=== PATIENT | male | born 1965 | race Two or more races ===

== ENCOUNTER 2017-11-23 19:01 | Inpatient (IN) | payer SELFPAY ==
[~2017-11-23] VITALS: Ht 177.8 cm; Wt 101.6 kg
--- NOTE | 2017-11-23 19:16 | NUR ---
BB FAMILY C/O "CHEST PAIN 07/02. I HAVE CHF. DONT FUCKING TOUCH ME". PT DESCRIBES PAIN SHARP PAIN THAT IS NON-RADIATING AND CONSTANT AT THIS TIME. PT IS NOTED TO BE RESTLESS AND ANGRY WITH STAFF. PT AMBULATED TO ER BED 7 WITH STEADY GAIT NOTED. NO S/S OF ACUTE DISTRESS NOTED. PT RESP EVEN AND UNLABORED. SKIN IS DRY AND WARM TO TOUCH. 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 AWAITING MD COLLINS.
--- NOTE | 2017-11-23 19:37 | NUR ---
RADIOLOGY BEDSIDE FOR CHEST X-RAY
[2017-11-23] MEDS ORDERED: ONDANSETRON HCL/PF 4 MG/2 ML VIAL ONE (19:42)
[2017-11-23] MEDS ORDERED: MORPHINE SULFATE INJ 4 MG/ML DISP.SYRIN ONE (19:42)
[2017-11-23] MEDS ORDERED: NITROGLYCERIN PACKET 1 GM PACKET ONE (19:43)
[2017-11-23 19:49] LABS: BASOPHILS # (AUTO) 0.1 /CMM (0.0-0.2); BASOPHILS % (AUTO) 1.4 % (0.0-2.0); EOSINOPHILS # (AUTO) 0.1 /CMM (0.0-0.7); EOSINOPHILS % (AUTO) 1.1 % (0.0-6.0); HEMATOCRIT 44 % (39-51); HEMOGLOBIN 14.9 g/dL (13.5-17.5); LYMPHOCYTES # (AUTO) 3.3 /CMM (0.8-4.8); LYMPHOCYTES % (AUTO) 31.3 % (20.0-44.0); MEAN CORPUSCULAR HEMOGLOBIN 26 PG (26.0-33.0); MEAN CORPUSCULAR HGB CONC 34 g/dl (31.0-36.0); MEAN CORPUSCULAR VOLUME 79 fL (80-96); MONOCYTES # (AUTO) 0.6 /CMM (0.1-1.30); MONOCYTES % (AUTO) 5.6 % (2.0-12.0); NEUTROPHILS # (AUTO) 6.3 /CMM (1.8-8.9); NEUTROPHILS % (AUTO) 60.6 % (43.0-81.0); PLATELET COUNT (AUTO) 251 /CMM (150-450); RDW COEFFICIENT OF VARIATION 16.8 (11.5-15.0); RED BLOOD CELL COUNT(AUTO) 5.63 MIL/uL (4.5-6.0); WHITE BLOOD COUNT (AUTO) 10.4 K/uL (4.3-11.0)
[2017-11-23 20:00] LABS: CREATININE 1.2 mg/dL (0.6-1.3); POTASSIUM 3.9 mmol/L (3.5-5.1)
[2017-11-23] MEDS ORDERED: NITROGLYCERIN PACKET 1 GM PACKET TD ONE (20:00)
[2017-11-23] MEDS ORDERED: ONDANSETRON HCL/PF 4 MG/2 ML VIAL IVP ONE (20:00)
[2017-11-23] MEDS ORDERED: MORPHINE SULFATE INJ 2 MG/ML DISP.SYRIN IV ONE (20:00)
[2017-11-23 20:03] LABS: INR 0.94 (0.85-1.15)
[2017-11-23 20:07] LABS: TROPONIN I 0.021 ng/mL (0.00-0.056)
--- NOTE | 2017-11-23 20:20 | NUR ---
Patient is resting comfortably in bed with eyes closed. Easily aroused. VSS. No s/s of acute distress noted. Pt's brother bedisde.
--- NOTE | 2017-11-23 20:26 | NUR ---
[facility] NUMBER [phone]
--- NOTE | 2017-11-23 21:10 | NUR ---
GAVE REPORT TO COMPLIANCE QUALITY PERFORMANCE ANALYSTJASE AGUDELO FOR SNEHA.
--- NOTE | 2017-11-23 21:50 | NUR ---
RN NOTES RECEIVED PT. FROM ER WITH DX. OF CHEST PAIN, PT. IS A/OX4, AMBULATORY, BROTHER AT BEDSIDE, SR WITH BBB ON TELE MONITOR, ADMISSION INSTRUCTION WAS GIVEN, CALL LIGHT WITHIN REACH, SIDERAILSUPX2, CONTINUE TO MONITOR
[2017-11-23 22:00] VITALS: BP 128/77
[2017-11-23] MEDS ORDERED: ZOLPIDEM TARTRATE 5 MG TABLET PO PRN (22:30)
[2017-11-23] MEDS ORDERED: ONDANSETRON HCL/PF 4 MG/2 ML VIAL IVP PRN (22:30)
[2017-11-23] MEDS ORDERED: MORPHINE SULFATE INJ 2 MG/ML DISP.SYRIN IV PRN (22:30)
[2017-11-23] MEDS ORDERED: METOPROLOL TARTRATE 25 MG TABLET PO SCH (22:30)
[2017-11-23] MEDS ORDERED: NITROGLYCERIN 0.4 MG/TAB BOTTLE SL PRN (22:30)
--- NOTE | 2017-11-23 22:30 | NUR ---
RN NOTES DR. CROWELL CAME AND TALKED TO THE PT. AND GAVE AN ORDER, ORDER NOTED AND CARRIED OUT
[2017-11-23] MEDS ORDERED: FURO-144 PO (22:31)
[2017-11-23] MEDS ORDERED: HYDR-552 PO (22:32)
[2017-11-23] MEDS ORDERED: CARV25TA2 PO (22:32)
[2017-11-23] MEDS ORDERED: ZOLP10TA2 PO (22:32)
[2017-11-23] MEDS ORDERED: FUROSEMIDE 40 MG TABLET PO ONE (23:00)
[2017-11-23] MEDS ORDERED: ZOLPIDEM TARTRATE 10 MG TABLET PO ONE (23:00)
[2017-11-23] MEDS ORDERED: TRAMADOL HCL 50 MG TABLET PO PRN (23:00)
[2017-11-23] MEDS ORDERED: MISCELLANEOUS MED 1 EA EA XX ONE (23:00)
[2017-11-23] MEDS ORDERED: CARVEDILOL 12.5 MG TABLET PO ONE (23:00)
[2017-11-23] MEDS ORDERED: ASPIRIN 81 MG TAB.CHEW PO ONE (23:00)
[2017-11-23] MEDS ORDERED: MELATONIN 1 MG PO PRN (23:30)
[2017-11-24] VITALS (7 sets, daily range): BP systolic 97–145; BP diastolic 56–94
--- NOTE | 2017-11-24 06:46 | NUR ---
RN NOTES SLEEPING BUT AROUSABLE, DENIES PAIN, NO SOB, CALL LIGHT WITHIN REACH, SIDERAILSUPX2, PT. NEEDS ATTENDED. ENDORSED TO [facility] NURSE FOR CONTINUITY OF CARE
--- NOTE | 2017-11-24 07:19 | NUR ---
THIRD LOADER NOTES RECEIVED PT ON BED SLEEPING. ALERT ORIENTED X4. ON ROOM AIR SATURATING WELL. ON TELE MONITOR WITH SR BBB. IV ACCESS ON LFA #18 HL RUNNING WELL. NO SIGN OF REDNESS OR PAIN. HEAD OF BED ELEVATED. SIDE RAILS UP. CALL LIGHT WITHIN REACH. WILL CONTINUE TO MONITOR PT CLOSELY.
[2017-11-24 07:38] LABS: BASOPHILS # (AUTO) 0.1 /CMM (0.0-0.2); BASOPHILS % (AUTO) 0.7 % (0.0-2.0); EOSINOPHILS # (AUTO) 0.1 /CMM (0.0-0.7); EOSINOPHILS % (AUTO) 1.4 % (0.0-6.0); HEMATOCRIT 43 % (39-51); HEMOGLOBIN 14.2 g/dL (13.5-17.5); LYMPHOCYTES # (AUTO) 3.2 /CMM (0.8-4.8); LYMPHOCYTES % (AUTO) 34.5 % (20.0-44.0); MEAN CORPUSCULAR HEMOGLOBIN 27 PG (26.0-33.0); MEAN CORPUSCULAR HGB CONC 34 g/dl (31.0-36.0); MEAN CORPUSCULAR VOLUME 82 fL (80-96); MONOCYTES # (AUTO) 0.5 /CMM (0.1-1.30); MONOCYTES % (AUTO) 5.7 % (2.0-12.0); NEUTROPHILS # (AUTO) 5.4 /CMM (1.8-8.9); NEUTROPHILS % (AUTO) 57.7 % (43.0-81.0); PLATELET COUNT (AUTO) 219 /CMM (150-450); RDW COEFFICIENT OF VARIATION 17.9 (11.5-15.0); RED BLOOD CELL COUNT(AUTO) 5.19 MIL/uL (4.5-6.0); WHITE BLOOD COUNT (AUTO) 9.3 K/uL (4.3-11.0)
[2017-11-24 07:59] LABS: CALCIUM, SERUM 8.4 mg/dL (8.5-10.1); CREATININE 1.1 mg/dL (0.6-1.3); MAGNESIUM 1.8 mg/dL (1.8-2.4); PHOSPHORUS 4.5 mg/dL (2.5-4.9); POTASSIUM 4.2 mmol/L (3.5-5.1)
[2017-11-24] MEDS: FUROSEMIDE 40 MG TABLET PO SCH (08:21)
[2017-11-24] MEDS: CARVEDILOL 12.5 MG TABLET PO SCH ×2 (08:21→20:58)
[2017-11-24] MEDS: ASPIRIN 81 MG TAB.CHEW PO SCH (08:21)
[2017-11-24] MEDS ORDERED: CARVEDILOL 25 MG TABLET PO SCH (09:00)
--- NOTE | 2017-11-24 11:00 | NUR ---
OFFICE CLIN ASST NOTES NOTIFIED DR MENA FOR CARDIOLOGY CONSULT.
[2017-11-24] MEDS: LOSARTAN POTASSIUM 50 MG TABLET PO SCH (14:00)
[2017-11-24] MEDS: ATORVASTATIN 40 MG TABLET PO SCH (14:11)
[2017-11-24] MEDS: HYDROMORPHONE INJ 0.5 MG/0.5 ML SYRINGE IV PRN (18:43)
--- NOTE | 2017-11-24 19:00 | NUR ---
RN NOTES: RECEIVED AWAKE ON BED LYING COMFORTABLY, NO SOB OR SIGN OF ANY RESPIRATORY DISTRESS, ON ROOM AIR 98%,A/OX4, AMBULATORY,ABLE TO MAKE NEEDS KNOWN, BED LOW AND LOCKED, CALL LIGHT WITHIN EASY REACH,FALL,SAFETY AND ASPIRATION PRECAUTION OBSERVED, ON TELE-MONITOR SR-RBBB RATE =84.KEPT ON CLOSE WATCH, PATIENT IS GETTING OUT OF BED AND GOING OUTSIDE OF HIS ROOM TO WALK AROUND, INSTRUCTED TO NOTIFY NURSES IF HE NEEDS ANYTHING, KEPT CALL LIGHT WITHIN EASY REACH.
--- NOTE | 2017-11-24 19:28 | NUR ---
ENVIRONMENTAL SAMPLER NOTES NO ACUTE CHANGES NOTED DURING THE SHIFT. DUE MEDS GIVEN. PROVIDED COMFORT AND SAFETY. ENDORSED TO THE PM NURSE FOR SNEHA.
[2017-11-24] MEDS ORDERED: ZOLPIDEM TARTRATE 10 MG TABLET PO SCH (22:00)
--- NOTE | 2017-11-24 23:35 | NUR ---
RN NOTES: PATIENT ASLEEP AT SHORT INTERVALS,KEPT RESTED.
[2017-11-25] VITALS: BP 117/71
--- NOTE | 2017-11-25 01:50 | NUR ---
RN NOTES: ASLEEP, KEPT ON CLOSE WATCH, CALL LIGHT WITHIN EASY REACH.
[2017-11-25] MEDS: HYDROMORPHONE INJ 0.5 MG/0.5 ML SYRINGE IV PRN ×2 (02:53→12:07)
--- NOTE | 2017-11-25 02:58 | NUR ---
RN NOTES: AWAKE, WENT TO THE BATHRROM, WENT HE RETURNED BACK HE COMPLAINED OF GENERALIZED PAIN 6-05/01, REQUEST FOR DILAUDID, BP-117/71,PAIN MEDS GIVEN PER REQUEST, NON PHARMACOLOGIC INTERVENTION RENDERED, DIM LIGHT AND KEEP ROOM COOL.TRYING TO GET BACK IN SLEEP, CALL LIGHT WITHIN EASY REACH.
--- NOTE | 2017-11-25 03:25 | NUR ---
RN NOTES: ABLE TO SLEEP AND REST AT SHORT INTERVALS,KEPT RESTED.
[2017-11-25 04:00] VITALS: BP 117/97
--- NOTE | 2017-11-25 06:47 | NUR ---
RN NOTES: ENDORSED ASLEEP ON BED,NO SIGN OF ANY RESPIRATORY DEPRESSION, NO CHEST PAIN,KEPT MONITORED, CALL LIGHT WITHIN EASY REACH, STILL TELE MONITOR SR-RBBB RATE 73.
[2017-11-25 06:53] LABS: CALCIUM, SERUM 8.9 mg/dL (8.5-10.1); MAGNESIUM 1.8 mg/dL (1.8-2.4); POTASSIUM 3.9 mmol/L (3.5-5.1)
--- NOTE | 2017-11-25 07:53 | NUR ---
WRAPPER STITCHER OPENING NOTES RECEIVED PATIENT IN STABLE CONDITION. PATIENT IS SLEEPING IN BED. IN NO APPARENT DISTRESS. BEDSIDE RAILS ARE UPX2. BED IS LOCKED AND LOWERED. CALL LIGHT IS WITHIN REACH. WILL CONTINUE TO MONITOR.
[2017-11-25 08:00] VITALS: BP 111/73
[2017-11-25] MEDS: ASPIRIN 81 MG TAB.CHEW PO SCH (08:48)
[2017-11-25] MEDS: ATORVASTATIN 40 MG TABLET PO SCH (08:48)
[2017-11-25] MEDS: CARVEDILOL 12.5 MG TABLET PO SCH (08:48)
[2017-11-25] MEDS: FUROSEMIDE 40 MG TABLET PO SCH (08:48)
[2017-11-25 08:49] VITALS: BP 111/73
[2017-11-25] MEDS: LOSARTAN POTASSIUM 50 MG TABLET PO SCH (08:49)
[2017-11-25] MEDS ORDERED: ZOLP10TA2 PO (14:33)
--- NOTE | 2017-11-25 14:45 | NUR ---
PATIENT DISCHARGED IN STABLE CONDITION. IN NO APPARENT DISTRESS. VITAL SIGNS WITHIN NORMAL LIMITS. ALL NEEDS WERE MET. ID BAND WAS REMOVED. IV WAS REMOVED. PATIENT'S SON DRIVING THE PATIENT HOME. EXITCARE PROVIDED TO THE PATIENT.
== END 2017-11-25 14:45 | disposition home or self-care (01) | DRG 206 ==
LOC: ER 19:10 → EDBD 19:10 → TELE1 21:40 → MEDSG1 11-25 10:39
PROVIDERS: ADMIT Internal Medicine; ATTEND Internal Medicine
DX: M94.0 Chondrocostal junction syndrome [Tietze] (principal); G20 Parkinson's disease; I42.9 Cardiomyopathy, unspecified; I11.0 Hypertensive heart disease with heart failure; I50.22 Chronic systolic (congestive) heart failure; E66.01 Morbid (severe) obesity due to excess calories; Z88.8 Allergy status to other drugs, medicaments and biological substances; F17.200 Nicotine dependence, unspecified, uncomplicated; I45.6 Pre-excitation syndrome; Z68.32 Body mass index [BMI] 32.0-32.9, adult
CPT/HCPCS: 36415; 71045-TC; 80048-TC; 80061-TC; 83735-TC; 83880; 84100-TC; 84484-TC; 85025-TC; 85730-TC; 87081-TC; 93307-TC; A4606; J2270; J2405; Z7610